=== PATIENT | male | born 1960 | race Caucasian/White ===

== ENCOUNTER 2019-05-02 08:52 | Emergency (ER) | payer SELFPAY ==
--- NOTE | 2019-05-02 09:19 | ER ---
Nurse's Notes [facility] Name: Barber Doty Age: 58 yrs Sex: Male : 1960 Arrival Date: 05/02/2019 Time: 08:55 Bed 13 Private MD: None, None Diagnosis: Encounter for screening, unspecified Presentation: 05/02 08:59 Transition of care: patient was not received from another setting of care. Onset of sg symptoms was May 02, 2019. Risk Assessment: Do you want to hurt yourself or someone else? Patient reports no desire to harm self or others. Initial Sepsis Screen: Does the patient meet any 2 criteria? No. Patient's initial sepsis screen is negative. Does the patient have a suspected source of infection? No. Patient's initial sepsis screen is negative. Care prior to arrival: None. 08:59 Method Of Arrival: Ambulatory 08:59 Acuity: JUAN M 4 sg 09:00 Presenting complaint: Presenting complaint: Patient states: chipped my tooth and sg couldn't get it to stop bleeding. Historical: - Allergies: 09:18 No Known Allergies; sg - Home Meds: 09:18 None [Active]; sg - PMHx: 09:18 None; sg - PSHx: 09:18 None; sg - Immunization history:: Adult Immunizations not up to date. - Social history:: Smoking status: Patient/guardian denies using tobacco. - Ebola Screening: : Patient negative for fever greater than or equal to 101.5 degrees Fahrenheit, and additional compatible Ebola Virus Disease symptoms Patient denies exposure to infectious person Patient denies travel to an Ebola-affected area in the 21 days before illness onset No symptoms or risks identified at this time. Screenin:10 Abuse screen: Denies threats or abuse. Denies injuries from another. Nutritional sg screening: No deficits noted. Tuberculosis screening: No symptoms or risk factors identified. Never had TB. Fall Risk None identified. Assessment: 09:00 General: Appears in no apparent distress. well groomed, well developed, well nourished, sg Behavior is calm, cooperative, appropriate for age. Pain: Denies pain. Neuro: Level of Consciousness is awake, alert, obeys commands, Oriented to person, place, time, Counter Caser are equal bilaterally Moves all extremities. Gait is steady, Speech is normal, Facial symmetry appears normal. Cardiovascular: Capillary refill is brisk in bilateral fingers Patient's skin is warm and dry. Chest pain is denied. Respiratory: Airway is patent Respiratory effort is even, unlabored, Respiratory pattern is regular, symmetrical. GI: Abdomen is flat, non-distended. : No signs and/or symptoms were reported regarding the genitourinary system. EENT: Oral mucosa is moist. Poor dentition noted. dried blood noted to gums. Throat is clear. Derm: Skin is pink, warm \T\ dry. Musculoskeletal: Circulation, motion, and sensation intact. Range of motion: intact in all extremities. Vital Signs: 09:00 BP 100 / 73; Pulse 52; Resp 17; Temp 97.2; Pulse Ox 98% on R/A; Weight 86.18 kg (R); sg Height 5 ft. 8 in. (172.72 cm); Pain 8/10; 09:00 Body Mass Index 28.89 (86.18 kg, 172.72 cm) sg ED Course: 08:55 Patient arrived in ED. mr 08:56 None, None is Private Physician. mr 08:58 Lyle Davies, CATE is Primary Nurse. sg 08:58 Arm band placed on. sg 08:59 Triage completed. sg 09:00 Patient has correct armband on for positive identification. Pulse ox on. NIBP on. sg 09:12 Perlita Maldonado FNP-C is PHCP. snw 09:12 Robert Mcadams MD is Attending Physician. snw 09:19 No provider procedures requiring assistance completed. Patient did not have IV access sg during this emergency room visit. Administered Medications: No medications were administered Outcome: 09:18 Discharge ordered by . snw 09:18 Discharged to home ambulatory. sg 09:18 Condition: good 09:18 Discharge instructions given to patient, Instructed on discharge instructions, follow up and referral plans. safety practices, Demonstrated understanding of instructions, follow-up care. 09:19 Patient left the ED. sg Signatures: Lyle Davies RN RN sg Perlita Maldonado FNP-C FNP-Domenica Talia Carroll Corrections: (The following items were deleted from the chart) 09:18 09:00 Presenting complaint: sg sg
--- NOTE | 2019-05-02 09:19 | EDPHYS ---
Physician Documentation [facility] Name: Barber Doty Age: 58 yrs Sex: Male : 1960 Arrival Date: 05/02/2019 Time: 08:55 Bed 13 Private MD: None, None ED Physician Robert Mcadams HPI: 05/02 09:19 This 58 yrs old Male presents to ER via Ambulatory with complaints of snw Bleeding Tooth. 09:21 The patient presents with broken tooth/teeth. Onset: The symptoms/episode snw began/occurred acutely. Duration: The symptoms are continuous, but are markedly better than the original presentation, in ED. Associated signs and symptoms: The patient has no apparent associated signs or symptoms. Severity of symptoms: At their worst the symptoms were moderate, severe. It is unknown whether or not the patient has had similar symptoms in the past. It is unknown whether or not the patient has recently seen a physician. pt leaving ED on assessment, I asked pt if I could complete assessment and he said he got the bleeding to stop and does not wish to be seen. Historical: - Allergies: 09:18 No Known Allergies; sg - Home Meds: 09:18 None [Active]; sg - PMHx: 09:18 None; sg - PSHx: 09:18 None; sg - Immunization history:: Adult Immunizations not up to date. - Social history:: Smoking status: Patient/guardian denies using tobacco. - Ebola Screening: : Patient negative for fever greater than or equal to 101.5 degrees Fahrenheit, and additional compatible Ebola Virus Disease symptoms Patient denies exposure to infectious person Patient denies travel to an Ebola-affected area in the 21 days before illness onset No symptoms or risks identified at this time. ROS: 09:18 Constitutional: Negative for fever, chills, and weight loss, Eyes: Negative for injury, snw pain, redness, and discharge, Neck: Negative for injury, pain, and swelling, Cardiovascular: Negative for chest pain, palpitations, and edema, Respiratory: Negative for shortness of breath, cough, wheezing, and pleuritic chest pain, Abdomen/GI: Negative for abdominal pain, nausea, vomiting, diarrhea, and constipation, Back: Negative for injury and pain, : Negative for injury, bleeding, discharge, and swelling, MS/Extremity: Negative for injury and deformity, Skin: Negative for injury, rash, and discoloration, Neuro: Negative for headache, weakness, numbness, tingling, and seizure. 09:18 ENT: Positive for bleeding around tooth, pt states he got it to stop and declines tx.. Exam: 09:15 Constitutional: This is a well developed, well nourished patient who is awake, alert, snw and in no acute distress. Head/Face: Normocephalic, atraumatic. Eyes: Pupils equal round and reactive to light, extra-ocular motions intact. Lids and lashes normal. Conjunctiva and sclera are non-icteric and not injected. Cornea within normal limits. Periorbital areas with no swelling, redness, or edema. Neuro: Awake and alert, GCS 15, oriented to person, place, time, and situation. Cranial nerves II-XII grossly intact. Motor strength 5/5 in all extremities. Sensory grossly intact. Cerebellar exam normal. Normal gait. Psych: Awake, alert, with orientation to person, place and time. Behavior, mood, and affect are within normal limits. Vital Signs: 09:00 BP 100 / 73; Pulse 52; Resp 17; Temp 97.2; Pulse Ox 98% on R/A; Weight 86.18 kg (R); sg Height 5 ft. 8 in. (172.72 cm); Pain 8/10; 09:00 Body Mass Index 28.89 (86.18 kg, 172.72 cm) sg MDM: 09:12 Patient medically screened. snw 09:15 Data reviewed: vital signs, nurses notes. Data interpreted: Pulse oximetry: on room air snw is 98 %. Interpretation: normal. Counseling: I had a detailed discussion with the patient and/or guardian regarding: the historical points, exam findings, and any diagnostic results supporting the discharge/admit diagnosis, the need for outpatient follow up, to return to the emergency department if symptoms worsen or persist or if there are any questions or concerns that arise at home. Response to treatment: and as a result, I will. Administered Medications: No medications were administered Disposition: 11:27 Co-signature as Attending Physician, Robert Mcadams MD. rn Disposition: 05/02/19 09:18 Discharged to Home. Impression: Encounter for screening, unspecified. - Condition is Stable. - Medication Reconciliation Form, Thank You Letter, Antibiotic Education, Prescription Opioid Use form. - Follow up: Private Physician; When: 1 - 2 days; Reason: Recheck today's complaints, Continuance of care, Re-evaluation by your physician. Follow up: Emergency Department; When: As needed; Reason: Worsening of condition. Signatures: Lyle Davies RN RN sg Perlita Maldonado, MANAGER LAUNDRY-C MANAGER LAUNDRY-Csnw Robert Mcadams MD MD pattern setter: (The following items were deleted from the chart) 09:19 09:18 05/02/2019 09:18 Discharged to Home. Impression: Encounter for screening, sg unspecified. Condition is Stable. Forms are Medication Reconciliation Form, Thank You Letter, Antibiotic Education, Prescription Opioid Use. Follow up: Private Physician; When: 1 - 2 days; Reason: Recheck today's complaints, Continuance of care, Re-evaluation by your physician. Follow up: Emergency Department; When: As needed; Reason: Worsening of condition. snw 09:21 09:19 The patient presents with bleeding, snw snw
== END 2019-05-02 09:19 | disposition home or self-care (01) ==
LOC: ER 08:52
DX: Z13.9 Encounter for screening, unspecified (principal)
CPT/HCPCS: 99283